=== PATIENT | female | born 1980 | race Caucasian/White ===

== ENCOUNTER 2016-11-29 23:28 | Emergency (ER) | payer SELFPAY ==
[2016-11-30] MEDS ORDERED: Ketorolac Tromethamine 60 MG/2 ML VIAL ONE (00:29)
[2016-11-30] MEDS ORDERED: HYDROcodone/Acetaminophen 5/325 mg Tablet ONE (00:29)
[2016-11-30] MEDS ORDERED: Dexamethasone 4 MG TAB ONE (00:29)
== END 2016-11-30 00:28 | disposition home or self-care (01) ==
LOC: MADERS 23:28
DX: M25.561 Pain in right knee (principal); F17.210 Nicotine dependence, cigarettes, uncomplicated; Z79.899 Other long term (current) drug therapy
CPT/HCPCS: 96372; J1885; J8540

== ENCOUNTER 2017-05-03 08:52 | Outpatient (CLI) | payer OTHER ==
[2017-05-03 09:20] LABS: Hemoglobin 14.4 g/dL (12.0-16.0); Mean Corpuscular HGB CONC 34.4 g/dL (32.0-36.0); Mean Corpuscular Hemoglobin 30.9 pg (27.0-31.0); Mean Corpuscular Volume 89.6 fl (81.0-99.0); Mean Platelet Volume 8.4 fL (7.4-10.4); Platelet Count 285 thou/uL (130-400); RBC Distribution Width 11.5 % (11.5-14.5); Red Blood Cell (RBC) Count 4.66 mill/uL (4.20-5.40); White Blood Cell (WBC) Count 9.2 thou/uL (4.8-10.8)
[2017-05-03 10:01] LABS: ALT (SGPT) 13 U/L (8-55); AST (SGOT) 10 U/L (5-34); Albumin 3.7 g/dL (3.5-5.0); Alkaline Phosphatase 59 U/L (40-150); Anion Gap 12 mmol/L (10-20); BUN (Urea Nitrogen) 12 mg/dL (7.0-18.7); Bilirubin, Total 0.4 mg/dL (0.2-1.2); Calc. Creatinine Clearance 0 mL/min (70-130); Calcium 8.9 mg/dL (7.8-10.44); Carbon Dioxide 22 mmol/L (22-29); Chloride 107 mmol/L (98-107); Estimated GFR-MDRD 89; Globulin 2.6 g/dL (2.4-3.5); Glucose 95 mg/dL (70-105); Potassium 4.2 mmol/L (3.5-5.1); Protein, Total 6.3 g/dL (6.0-8.3); Sodium 137 mmol/L (136-145)
== END 2017-05-03 08:53 | disposition home or self-care (01) ==
LOC: MADLAB 08:52
PROVIDERS: ATTEND Family Medicine
DX: R04.2 Hemoptysis (principal); R06.9 Unspecified abnormalities of breathing; I26.99 Other pulmonary embolism without acute cor pulmonale
CPT/HCPCS: 36415; 80053; 83880; 85027; 85379

== ENCOUNTER 2017-06-19 18:21 | Emergency (ER) | payer SELFPAY ==
[2017-06-19 19:08] LABS: #Basophils 0.2 thou/uL (0.0-0.2); #Eosinphils 0.6 thou/uL (0.0-0.7); #Lymphocytes 3.6 thou/uL (1.20-3.40); #Monocytes 0.7 thou/uL (0.11-0.59); #Neutrophils 6.8 thou/uL (1.40-6.50); %Basophils 1.6 % (0.0-1.0); %Eosinophils 5.3 % (0.0-10.0); %Monocytes 6.2 % (0.0-10.0); Hemoglobin 13.9 g/dL (12.0-16.0); Mean Corpuscular HGB CONC 34.9 g/dL (32.0-36.0); Mean Corpuscular Hemoglobin 31.1 pg (27.0-31.0); Mean Corpuscular Volume 89.3 fl (81.0-99.0); Mean Platelet Volume 8.3 fL (7.4-10.4); Platelet Count 291 thou/uL (130-400); RBC Distribution Width 12.3 % (11.5-14.5); Red Blood Cell (RBC) Count 4.46 mill/uL (4.20-5.40); White Blood Cell (WBC) Count 11.9 thou/uL (4.8-10.8)
--- NOTE | 2017-06-19 19:15 | RAD ---
AP CHEST: History: Chest pain. Date: 06-19-17 FINDINGS: The lungs are well aerated. No evidence of active intrathoracic disease seen. No evidence of effusio ns, pneumonia or pneumothorax seen. IMPRESSION: Unremarkable AP chest. POS: [facility]
[2017-06-19 19:25] LABS: ALT (SGPT) 14 U/L (8-55); AST (SGOT) 10 U/L (5-34); Alkaline Phosphatase 56 U/L (40-150); Anion Gap 16 mmol/L (10-20); BUN (Urea Nitrogen) 15 mg/dL (7.0-18.7); Bilirubin, Total Less than 0.3 mg/dL (0.2-1.2); Calc. Creatinine Clearance 0 mL/min (70-130); Calcium 9.2 mg/dL (7.8-10.44); Carbon Dioxide 20 mmol/L (22-29); Chloride 108 mmol/L (98-107); Estimated GFR-MDRD 87; Globulin 2.3 g/dL (2.4-3.5); Glucose 130 mg/dL (70-105); Protein, Total 6.3 g/dL (6.0-8.3); Sodium 140 mmol/L (136-145)
== END 2017-06-19 20:34 | disposition home or self-care (01) ==
LOC: MADERS 18:21
DX: R07.9 Chest pain, unspecified (principal); R59.0 Localized enlarged lymph nodes; E66.9 Obesity, unspecified
CPT/HCPCS: 71010; 80053; 83880; 84484; 85025; 93005

== ENCOUNTER 2017-10-13 18:20 | Emergency (ER) | payer SELFPAY ==
[2017-10-13 19:47] LABS: #Basophils 0.1 thou/uL (0.0-0.2); #Eosinphils 0.2 thou/uL (0.0-0.7); #Lymphocytes 3.1 thou/uL (1.20-3.40); #Monocytes 0.7 thou/uL (0.11-0.59); #Neutrophils 6.4 thou/uL (1.40-6.50); %Basophils 1.1 % (0.0-1.0); %Eosinophils 2.2 % (0.0-10.0); %Lymphocytes 29.6 % (21.0-51.0); %Monocytes 6.8 % (0.0-10.0); %Neutrophils 60.3 % (42.0-75.0); Hemoglobin 12.5 g/dL (12.0-16.0); Mean Corpuscular HGB CONC 33.1 g/dL (32.0-36.0); Mean Corpuscular Hemoglobin 29.2 pg (27.0-31.0); Mean Corpuscular Volume 88.4 fl (81.0-99.0); Mean Platelet Volume 8.2 fL (7.4-10.4); Platelet Count 279 thou/uL (130-400); RBC Distribution Width 13.2 % (11.5-14.5); Red Blood Cell (RBC) Count 4.28 mill/uL (4.20-5.40); White Blood Cell (WBC) Count 10.6 thou/uL (4.8-10.8)
[2017-10-13 19:51] LABS: INR-International Normal Ratio 1.1; Prothrombin Time 13.9 SEC (12.0-14.7)
[2017-10-13 19:52] LABS: PTT 28.6 SEC (22.9-36.1)
[2017-10-13 19:53] LABS: D-Dimer Test 0.5 *mcg/mL (0.27-0.43)
[2017-10-13 20:02] LABS: ALT (SGPT) 17 U/L (8-55); AST (SGOT) 14 U/L (5-34); Albumin 3.6 g/dL (3.5-5.0); Alkaline Phosphatase 58 U/L (40-150); Anion Gap 13 mmol/L (10-20); BUN (Urea Nitrogen) 13 mg/dL (7.0-18.7); Bilirubin, Total 0.2 mg/dL (0.2-1.2); Calc. Creatinine Clearance 0 mL/min (70-130); Calcium 8.6 mg/dL (7.8-10.44); Carbon Dioxide 21 mmol/L (22-29); Chloride 110 mmol/L (98-107); Estimated GFR-MDRD 82; Globulin 2.3 g/dL (2.4-3.5); Glucose 103 mg/dL (70-105); Potassium 4.3 mmol/L (3.5-5.1); Protein, Total 5.9 g/dL (6.0-8.3); Sodium 140 mmol/L (136-145)
== END 2017-10-13 20:12 | disposition short-term general hospital (02) ==
LOC: MADERS 18:20
DX: I82.5Z2 Chronic embolism and thrombosis of unspecified deep veins of left distal lower extremity (principal); F17.210 Nicotine dependence, cigarettes, uncomplicated; Z79.01 Long term (current) use of anticoagulants
CPT/HCPCS: 36415; 80053; 85025; 85379; 85610; 85730; 99284

== ENCOUNTER 2019-01-11 08:53 | Emergency (ER) | payer OTHER, SELFPAY ==
--- NOTE | 2019-01-11 10:03 | RAD ---
LEFT FOOT 3 VIEWS: HISTORY: Injury. COMPARISON: 03/28/2017. FINDINGS: Postsurgical changes involving the base of the 5th metatarsal region. Generalized degenerative joseph e. No acute fracture or dislocation. IMPRESSION: No acute fracture or dislocation or other acute process. Postop changes involving the base of the 5t h metatarsal. POS: [facility]
[2019-01-11] MEDS ORDERED: Ibuprofen 800 MG TAB ONE (10:10)
[2019-01-11] MEDS ORDERED: traMADol HCl 50 MG TAB ONE (10:10)
== END 2019-01-11 10:24 | disposition home or self-care (01) ==
LOC: MADERS 08:53
DX: S93.602A Unspecified sprain of left foot, initial encounter (principal); E66.9 Obesity, unspecified; F17.210 Nicotine dependence, cigarettes, uncomplicated; F32.9 Major depressive disorder, single episode, unspecified; Z79.899 Other long term (current) drug therapy; W18.2XXA Fall in (into) shower or empty bathtub, initial encounter

== ENCOUNTER 2019-04-03 08:07 | Emergency (ER) | payer OTHER | END 2019-04-03 09:00 | disposition home or self-care (01) | LOC: MADERS 08:07 | DX: M25.521 Pain in right elbow (principal); M79.631 Pain in right forearm; E66.9 Obesity, unspecified; F31.9 Bipolar disorder, unspecified; F17.210 Nicotine dependence, cigarettes, uncomplicated; Z79.899 Other long term (current) drug therapy | CPT/HCPCS: 99282 ==

== ENCOUNTER 2019-11-28 15:30 | Outpatient (CLI) | payer OTHER ==
--- NOTE | 2019-11-28 15:59 | RAD ---
TWO VIEWS OF THE CHEST: 11/28/19 COMPARISON: None. HISTORY: Shortness of breath. Close exposure to the COVID-19 virus. FINDINGS: Two views of the chest show normal sized cardiomediastinal silhouette. There is no evidence of consol idation, mass, or pleural effusion. The bones are unremarkable. Bilateral nipple piercings are seen. IMPRESSION: No evidence of acute cardiopulmonary disease. POS: [facility]
== END 2019-11-28 15:31 | disposition home or self-care (01) ==
LOC: MADRAD 15:30
PROVIDERS: ATTEND Family Medicine
DX: R06.02 Shortness of breath (principal); Z20.828 Contact with and (suspected) exposure to other viral communicable diseases
CPT/HCPCS: 71046